=== PATIENT | female | born 1995 | race Hispanic/Latino ===

== ENCOUNTER 2018-07-14 16:16 | Emergency (ER) | payer OTHER ==
[2018-07-14 16:48] LABS: Bilirubin Negative (Negative); Blood, Urine Negative (Negative); Clarity CLEAR (Clear); Glucose, Urine (Dipstick) Negative (Negative); Leukocyte Trace (Negative); Nitrite Negative (Negative); Protein, Urine (Dipstick) Negative (Neg-Trace); Specific Gravity, Urine 1.011 (1.002-1.036); Urobilinogen 0.2 mg/dL (0.2-1.0); pH, Urine 6.5 (5.0-9.0)
[2018-07-14 16:50] LABS: Bacteria/HPF None Seen HPF (None Seen); Hyaline Casts/LPF 0-3 HYALINE CAST LPF (0-3 Hyaline); Pathc Cast-AUWi Flag 0.58 (0-2.49); RBC/HPF 0-3 HPF (0-3)
[2018-07-14 16:55] LABS: #Basophils 0.1 thou/uL (0.0-0.2); #Eosinphils 0.2 thou/uL (0.0-0.7); #Lymphocytes 2.1 thou/uL (1.20-3.40); #Monocytes 0.9 thou/uL (0.11-0.59); #Neutrophils 7.2 thou/uL (1.40-6.50); %Basophils 0.8 % (0.0-1.0); %Eosinophils 1.5 % (0.0-10.0); %Lymphocytes 20.2 % (21.0-51.0); %Monocytes 8.4 % (0.0-10.0); %Neutrophils 69.1 % (42.0-75.0); Hemoglobin 12.4 g/dL (12.0-16.0); Mean Corpuscular HGB CONC 32.5 g/dL (32.0-36.0); Mean Corpuscular Hemoglobin 27.9 pg (27.0-31.0); Mean Platelet Volume 8.5 fL (7.4-10.4); Platelet Count 258 thou/uL (130-400); RBC Distribution Width 12.3 % (11.5-14.5); Red Blood Cell (RBC) Count 4.46 mill/uL (4.20-5.40); White Blood Cell (WBC) Count 10.4 thou/uL (4.8-10.8)
[2018-07-14 17:17] LABS: ALT (SGPT) 22 U/L (8-55); AST (SGOT) 20 U/L (5-34); Alkaline Phosphatase 55 U/L (40-150); Anion Gap 9 mmol/L (10-20); BUN (Urea Nitrogen) 8 mg/dL (7.0-18.7); Bilirubin, Total 1.1 mg/dL (0.2-1.2); Calc. Creatinine Clearance 0 mL/min (70-130); Calcium 8.8 mg/dL (7.8-10.44); Carbon Dioxide 24 mmol/L (22-29); Chloride 105 mmol/L (98-107); Estimated GFR-MDRD Greater than 90; Glucose 78 mg/dL (70-105); Lipase 10 U/L (8-78); Potassium 3.7 mmol/L (3.5-5.1); Sodium 134 mmol/L (136-145)
--- NOTE | 2018-07-14 18:28 | ULT ---
OBSTETRICAL ULTRASOUND: CLINICAL HISTORY: Nausea and vomiting for two days. Pelvic pain. patient. TECHNIQUE: Ken-scale Doppler color-flow imaging performed with spectral analysis. FINDINGS: There is evidence of an intrauterine gestation, with a gestational sac, a pole, and a yolk sac present. The average age by ultrasound is 8 weeks 2 days. cardiac activity is documented at 1 68 beats per minute. No significant free pelvic fluid. Doppler assessment reveals flow to each ovar y. IMPRESSION: Single liver intrauterine gestation, as above. Recommend continued age appropriate surveillance. POS: ALEXIS
[2018-07-14] MEDS ORDERED: Ondansetron ODT 4 MG TAB ONE (18:42)
== END 2018-07-14 19:43 | disposition home or self-care (01) ==
LOC: ERS 16:16
DX: O21.9 Vomiting of pregnancy, unspecified (principal); Z3A.08 8 weeks gestation of pregnancy
CPT/HCPCS: 36415; 76805; 80053; 81003; 81015; 83690; 84702; 85025; Q0162

== ENCOUNTER 2018-08-02 03:00 | Emergency (ER) | payer OTHER ==
[2018-08-02] MEDS ORDERED: Ondansetron ODT 4 MG TAB ONE (04:40)
[2018-08-02 05:11] LABS: Bilirubin Small (Negative); Blood, Urine Negative (Negative); Clarity CLOUDY (Clear); Glucose, Urine (Dipstick) Negative (Negative); Leukocyte Negative (Negative); Nitrite Negative (Negative); Protein, Urine (Dipstick) Negative (Neg-Trace); Specific Gravity, Urine 1.033 (1.002-1.036); pH, Urine 5.5 (5.0-9.0)
[2018-08-02] MEDS ORDERED: Ondansetron ODT 8 MG TAB ONE (06:25)
== END 2018-08-02 09:07 | disposition home or self-care (01) ==
LOC: ERS 03:00
DX: O21.9 Vomiting of pregnancy, unspecified (principal); Z3A.11 11 weeks gestation of pregnancy
CPT/HCPCS: 81003; 96360; Q0162

== ENCOUNTER 2019-01-13 02:44 | Inpatient (IN) | payer OTHER ==
[2019-01-13 03:20] VITALS: BMI 25.0
[2019-01-13] MEDS ORDERED: Ondansetron PF 4 MG/2 ML Vial IVP PRN (04:05)
[2019-01-13] MEDS ORDERED: Butorphanol Tartrate 1 MG/ML VIAL SLOW IVP PRN (04:05)
[2019-01-13] MEDS ORDERED: Promethazine HCl 25 MG/ML VIAL IM PRN (04:05)
[2019-01-13] MEDS ORDERED: NS / Oxytocin 40 units/1000ml 1,000 ML IV PRN (04:05)
[2019-01-13] MEDS ORDERED: Ibuprofen 800 MG TAB PO PRN (04:05)
[2019-01-13] MEDS: Lactated Ringer's 1,000 ML IV SCH ×3 (04:05→13:11)
[2019-01-13] MEDS ORDERED: Lidocaine 1% (PF) 30 ML VIAL SC PRN (04:05)
[2019-01-13] MEDS ORDERED: Lactated Ringer's 1,000 ML IV SCH (04:05)
[2019-01-13] MEDS ORDERED: Penicillin G Potassium 5 MILL.UNITS in Sodium Chloride 0.9% 100 ML IVPB SCH (04:05)
[2019-01-13] MEDS ORDERED: HYDROcodone/Acetaminophen 5/325 mg Tablet PO PRN ×2 (04:05)
[2019-01-13 04:33] LABS: Amnisure Internal Control QC ACCEPTABLE (ACCEPTABLE); Amnisure Test No Membranes Rupture (No Rupture)
--- NOTE | 2019-01-13 04:33 | HP ---
TIME OF SERVICE: 0400 hours. PRESENTING COMPLAINTS: Contractions at 34 weeks. HISTORY OF PRESENT ILLNESS: Ms. Blanca is a 23-year-old, 4, para 2, AB 1 with an EDC of 02/20 placing her at 34 weeks and 4 days. She is a patient of Dr. Ani Ivy at [facility]. The patient reports that she had intercourse with her this evening attempting to bring the onset of labor and began having contractions. She has had some vaginal discharge that she thinks may be leakage of fluid, but could possibly also be liquified semen. She reports an active fetus. LOG SORTER HISTORY: x1 for labor. x1 at 38 weeks. Blood type A positive, antibody negative, Pap negative, rubella immune, VDRL nonreactive. Hepatitis B, GC, chlamydia negative, 50 g within normal limits. PAST MEDICAL HISTORY: Denies. PAST SURGICAL HISTORY: C-sections and cholecystectomy. ALLERGIES: DENIES. MEDICATIONS: vitamins and weekly Brandi. SOCIAL HISTORY: Denies tobacco, alcohol, or IV drug use. FAMILY HISTORY: Noncontributory. REVIEW OF SYSTEMS: Noncontributory. PHYSICAL EXAMINATION: GENERAL: female, resting comfortably, complaining of contractions about every 5 minutes. VITAL SIGNS: Blood pressure 114/81, pulse 85, respirations 18, temperature 98.9. HEENT: Within normal limits. LUNGS: Clear to auscultation bilaterally. HEART: Regular rate and rhythm. ABDOMEN: Soft with palpable contractions q.5 minutes. Vulva without lesions. Vagina with slight discharge. Cervix, 3 to 4, 80, -1, cephalic, ballots, bag of water seems intact. AmniSure pending. EXTREMITIES: No clubbing, cyanosis, or edema. LABORATORY DATA: monitoring is carried out, which revealed a category 1 tracing, 130s to 150s, positive acceleration, no decelerations. Contractions approximately q.5 minutes. IMPRESSION: Prior section, prior with labor at 34 to 35 weeks gestation. PLAN: 1. Admission. 2. IV hydration. 3. Stadol p.r.n. 4. Betamethasone 12 mg IM q.24 x2 doses. 5. Penicillin for group B strep prophylaxis. 6. AmniSure confirm or rule out rupture of membranes. The patient's presence and plan of care were communicated with Dr. Ani Ivy. Job ID: [id number]
[2019-01-13 05:10] LABS: Amphetamine Not Detected (NotDetected); Barbiturates Screen Not Detected (NotDetected); Benzodiazepine Screen Not Detected (NotDetected); Cocaine Metabolite Screen Not Detected (NotDetected); Medtox Control Line Valid? VALID (VALID); Medtox Reader # READER 1; Methadone Not Detected (NotDetected); Methamphetamine Not Detected (NotDetected); Opiate Screen Not Detected (NotDetected); Oxycodone Screen Not Detected (NotDetected); Phencyclidine (PCP) Not Detected (NotDetected); THC/Cannabinoid Screen Not Detected (NotDetected); Tricyclic Screen Not Detected (NotDetected)
[2019-01-13 05:21] LABS: Hemoglobin 9.8 g/dL (12.0-16.0); Mean Corpuscular HGB CONC 32.4 g/dL (32.0-36.0); Mean Corpuscular Hemoglobin 24.4 pg (27.0-31.0); Mean Corpuscular Volume 75.5 fL (78.0-98.0); Mean Platelet Volume 10.1 fL (7.4-10.4); Platelet Count 264 thou/uL (130-400); RBC Distribution Width 13.6 % (11.5-14.5); White Blood Cell (WBC) Count 9.5 thou/uL (4.8-10.8)
[2019-01-13] MEDS: Betamet Acet/Betamet Na Ph 30 MG/5 ML VIAL IM SCH (05:24)
[2019-01-13 05:27] LABS: HIV (1/2) Antibody/Antigen Non-Reactive (NonReactive); HIV 1/2 INDEX 0.07 S/CO (<1.00)
[2019-01-13 05:39] LABS: Syphilis Antibody Nonreactive (Nonreactive); Syphilis Antibody Index 0.03 S/CO (<1.00 Non-Reactive)
--- NOTE | 2019-01-13 07:26 | PRG ---
DATE OF SERVICE: 01/13/2019 TIME OF SERVICE: 0715 hours. SUBJECTIVE: Ms. Blanca is resting comfortably. AmniSure was negative for rupture of membranes. heart rate monitor reveals contractions approximately q.7-10 minutes now. Category I tracing is noted. The patient's abdomen is soft and nontender. Vaginal exam is deferred at this time as there has not been significant contractions since admission at approximately 0400 hours. IMPRESSION: Cervical dilatation to 3-4 cm with contractions now with decreased contractions and possible arrest of labor. PLAN: Continue IV fluids, corticosteroids x2 doses, and penicillin. We will check the patient out to Dr. Travis Peterson. The patient may be a candidate for discharge home if no further cervical change after 24-48 hours. Job ID: [id number]
[2019-01-13 07:35] LABS: HBSAg Index 0.29 S/CO (0-0.99); Hep B Surf Ag NonReactive S/CO (NonReactive)
[2019-01-13] MEDS: Penicillin G 2.5 MILL.units 2.5 MILL.UNITS in Premix Bag 1 BAG IVPB SCH ×3 (09:30→17:52)
--- NOTE | 2019-01-13 18:50 | PDOC.EVN ---
Event Note - Event Note Event Note: Pt reports she has decreased frequency and intensity of uterine contractions. She is tolerating a diet. vital signs reviewed and wnl fht 130's mod ltv +Accels, no decel toco [id number] with irritability most not felt by the patient A/P 34weeks ptl spontaneously arrested at 3cm. betamethazone #2 due in am ~5. nst bid . I dc'd abx. Aman in house management. February d/c home tomorrow if remains arrested and stable.
--- NOTE | 2019-01-14 04:58 | PDOC.LDPN ---
Labor & Delivery Progress Note - Subjective Subjective: comfortable (No concerns. no ctx. Good FM. No LOF, VB. ) - Objective Vital signs reviewed and normal: yes General: NAD Uterine fundus: non tender Dilation: 3 cm per past exam, not rechecked FHT: category 1 (120s, mod gaurav, +accels, no decels. ) [place] contractions every: none on toco last night - Assessment (1) 34 weeks gestation of Code(s): Z3A.34 - 34 WEEKS GESTATION OF Current Visit: Yes Status : Acute (2) labor Code(s): O60.00 - LABOR WITHOUT DELIVERY, UNSPECIFIED TRIMESTER Current Visit: Yes Status: Acute -: Complete steroid course this AM. GBS culture. NST today. If quiescent, plan for d/c home today. Recommended modified bed rest at home to allow for complete benefit of steroids for FLM.
[2019-01-14] MEDS: Betamet Acet/Betamet Na Ph 30 MG/5 ML VIAL IM SCH (05:32)
[2019-01-14 05:42] VITALS: BP 98/52; TEMP 98.5
== END 2019-01-14 10:21 | disposition home or self-care (01) | DRG 833 ==
LOC: L&D/OP 02:44 → L&D 07:52
PROVIDERS: ADMIT Obstetrics & Gynecology; ATTEND Obstetrics & Gynecology
DX: O60.03 Preterm labor without delivery, third trimester (principal); O34.219 Maternal care for unspecified type scar from previous cesarean delivery; Z3A.34 34 weeks gestation of pregnancy
CPT/HCPCS: 36415; 59025; 80306; 84112; 85027; 86780; 86850; 86900; 86901; 87081; 87340; 87389; 99285; J0702; J2540; J7050

== ENCOUNTER 2019-01-25 23:31 | Day surgery (SDC) | payer OTHER ==
[2019-01-26 00:21] VITALS: BP 105/68; TEMP 98; BMI 25.4
--- NOTE | 2019-01-26 03:03 | PRG ---
DATE OF SERVICE: 01/26/2019 PRIMARY OB: Dr. Ani Ivy. CHIEF COMPLAINT: Abdominal pains. HISTORY OF PRESENT ILLNESS: Patient is a 23-year-old G4, P2 female with an intrauterine at 36 weeks and 3 days, who is presenting to Labor and Delivery with uterine contractions that began yesterday. She reports that they are lasting about a minute and coming about every 2 to 3 minutes. The patient does report having had intercourse yesterday also. The patient does have presented about a week ago in a similar situation, was placed on observation and given steroids. Contractions subsequently abated and patient was discharged home. Patient reports that she has been having a mucousy discharge since yesterday. She denies any leakage of fluid or gross vaginal bleeding. She denies any recent illness, fever, fall, headache, chest pain, shortness of breath, nausea, vomiting, diarrhea, constipation, any new rashes, hip problems, knee problems, muscle weakness, or urinary urgency. PAST MEDICAL HISTORY: Negative. PAST SURGICAL HISTORY: She has had a prior at 25 weeks gestation and a subsequent vaginal . She also had cholecystectomy. ALLERGIES: NO KNOWN DRUG ALLERGIES. MEDICATIONS: 1. Brandi, which has recently been discontinued. 2. vitamins. SOCIAL HISTORY: Denies drug, alcohol, or tobacco use. OB LABS: Blood type is A positive. Antibody screen is negative. VDRL is nonreactive in the third trimester. Hepatitis B surface antigen is negative in the third trimester. HIV nonreactive in third trimester. She is rubella immune. REVIEW OF SYSTEMS: Per HPI. PHYSICAL EXAMINATION: VITAL SIGNS: Blood pressure is 119/55, heart rate of 88, and saturating 96% on room air. GENERAL: She appears to be in no acute distress. She is alert, oriented, cooperative, and pleasant to interact with. HEAD: Normocephalic and atraumatic. LUNGS: Clear to auscultation bilaterally. HEART: Has regular rate and rhythm. ABDOMEN: Soft and gravid. EXTREMITIES: Nontender and nonedematous. : Per nursing staff, cervix is 2.5 cm dilated, 50% effaced, -1 station, which is unchanged from 2 weeks ago. heart tracing shows the fetus in the baseline in the 120s with moderate long-term variability, positive 15 x 15 accelerations, no decelerations. The tocometer showing contractions about 4 to 6 minutes with some irritability. ASSESSMENT AND PLAN: Patient is a 23-year-old multiparous female with intrauterine at 36 weeks, who is here complaining of uterine contractions. There has been no cervical change up to this point. Patient has remained unchanged for the last couple of weeks. We will evaluate for labor over the next several hours. If she has no cervical change, will be discharged to home. Patient was given steroids the last time she presented with contractions at 35 weeks and was subsequently discharged home. Fetus has a reactive NST and category 1 tracing. GBS status is unknown at this time. Addendum: 0700> Pt has made slow cervical change from 2.5-3.5 cm and reports painful contractions again. She has been comfortable with IM morphine 6mg x1. I have notified her primary OB who will be making final disposition. Job ID: [id number] MTDD
[2019-01-26] MEDS ORDERED: Morphine 10 MG/ML VIAL IM SCH (03:15)
[2019-01-26] MEDS ORDERED: Fluconazole 100 MG TAB PO SCH (08:00)
[2019-01-26 08:06] LABS: Amnisure Test No Membranes Rupture (No Rupture)
[2019-01-26 08:08] LABS: Amnisure Internal Control QC ACCEPTABLE (ACCEPTABLE)
[2019-01-26] MEDS ORDERED: Promethazine HCl 25 MG/ML VIAL IM PRN (09:55)
[2019-01-26] MEDS ORDERED: Butorphanol Tartrate 1 MG/ML VIAL SLOW IVP PRN (09:55)
[2019-01-26] MEDS ORDERED: Acetaminophen 500 MG TAB PO PRN (09:55)
[2019-01-26] MEDS ORDERED: Ondansetron PF 4 MG/2 ML Vial IVP PRN (09:55)
--- NOTE | 2019-01-26 10:00 | PDOC.LDHP ---
Labor and Delivery H&P Chief complaint: contractions HPI: 23 yo @ 36w3d admit for observation due to PTL/ ctx. s/p steroids for FLM 2 weeks ago. Reports possible clear fluid leaking when went to bathroom , no continual leaking. No VB. Good FM. Reports ctx q5-10 min and feels increased pressure. However, pt was resting on my initial evaluation at 0730. Current gestational age (weeks): 36 Due date: 02/20/19 Dating criteria: last menstrual period Grav: 4 Para: 2 OB History Details: LTCS @ 25 weeks for PTL VABC x 1 at term with 17 OHP SAB x 1 Current complications: none Abnormal US findings: No Past Medical History: Denies Current medications: pre- vitamins Previous surgical history: low tranverse CS, cholecystectomy Allergies/Adverse Reactions: Allergies Allergy/AdvReac Type Severity Reaction Status Date / Time No Known Allergies Allergy Verified 01/26/19 00:01 Social history: none - Physical Exam Vital signs reviewed and normal: yes General: NAD Heart: RRR Lungs: CTAB Abdomen: other (SSE: small clear fluid in vagina, no pooling (appears to be melted gel); thick white discharge) Extremeties: no edema FHT: category 1 (120s, reactive, no decels) [place] contractions every: q10 min - Vaginal Exam cm dilated: 2 (cephalic ) Effacement: 50% Station: -3 - OB Labs Blood type: A RH: positive Antibody Screen: negative HIV: negative RPR: negative HEPSAg: negative 1 hour GCT: negative GBS: negative Urine drug screen: negative Rubella: immune - Assessment 36w3d IUP contraction, painful LTCS x1 x1 - Plan -: Amnisure neg Undergoing observation due to painful ctx. Monitor and recheck in few hours. plan for d/c home if unchanged.
--- NOTE | 2019-01-26 11:20 | PDOC.LDPN ---
Labor & Delivery Progress Note - Subjective Subjective: comfortable - Objective Vital signs reviewed and normal: yes General: NAD Uterine fundus: non tender Dilation: 2.5 Effacement: 50% Station: -3 FHT: category 1 [place] contractions every: q10 + min - Assessment (1) 36 weeks gestation of Code(s): Z3A.36 - 36 WEEKS GESTATION OF Current Visit: Yes Status : Acute (2) contractions Code(s): O47.9 - FALSE LABOR, UNSPECIFIED Current Visit: Yes Status: Acute -: No change for 2 exams by me > 4 hrs apart. Appears to be resting on my evaluations. D/C home with precautions. L&D warnings reviewed.
== END 2019-01-26 11:30 | disposition home or self-care (01) ==
LOC: L&D/OP 23:31
PROVIDERS: ATTEND Obstetrics & Gynecology
DX: O47.03 False labor before 37 completed weeks of gestation, third trimester (principal); Z3A.36 36 weeks gestation of pregnancy; Z79.899 Other long term (current) drug therapy
CPT/HCPCS: 84112; 87480; 87510; 87660; 96374; 99284; J2270

== ENCOUNTER 2019-02-04 15:51 | Inpatient (IN) | payer OTHER ==
[2019-02-04 16:46] VITALS: BMI 26.0
[2019-02-04] MEDS ORDERED: Methylergonovine 0.2 MG/ML VIAL IM PRN (16:48)
[2019-02-04] MEDS ORDERED: HYDROcodone/Acetaminophen 5/325 mg Tablet PO PRN (16:48)
[2019-02-04] MEDS ORDERED: Diphenoxylate HCl/Atropine Tablet PO PRN (16:48)
[2019-02-04] MEDS ORDERED: Promethazine HCl 25 MG/ML VIAL IM PRN ×2 (16:48→20:32)
[2019-02-04] MEDS ORDERED: Misoprostol 200 MCG TAB PR PRN (16:48)
[2019-02-04] MEDS ORDERED: Ondansetron PF 4 MG/2 ML Vial IVP PRN ×2 (16:48→20:32)
[2019-02-04] MEDS ORDERED: Meperidine HCl/PF 25 MG/ML VIAL IM/IV PRN (16:48)
[2019-02-04] MEDS ORDERED: Butorphanol Tartrate 1 MG/ML VIAL SLOW IVP PRN (16:48)
[2019-02-04] MEDS ORDERED: Carboprost 250 MCG/ML AMP IM PRN (16:48)
[2019-02-04] MEDS ORDERED: Lidocaine 1% (PF) 30 ML VIAL SC PRN (16:48)
[2019-02-04] MEDS ORDERED: Ibuprofen 800 MG TAB PO PRN (16:48)
--- NOTE | 2019-02-04 16:57 | PDOC.LDHP ---
Labor and Delivery H&P Chief complaint: loss of fluid HPI: 23 yo @ 37w6d by 8 week CRL who presented to clinic with c/o LOF. Gross LOF on exam. H/O LTCS x1 and x1. Desires TOLAC. Current gestational age (weeks): 37 Due date: 02/20/19 Dating criteria: first trimester ultrasound Grav: 3 Para: 2 OB History Details: LTCS x1 for PTL @ 25 weeks x 1 Current complications: none Abnormal US findings: No Past Medical History: Anemia Current medications: pre-jose vitamins, iron Previous surgical history: low tranverse CS Allergies/Adverse Reactions: Allergies Allergy/AdvReac Type Severity Reaction Status Date / Time No Known Allergies Allergy Verified 01/26/19 00:01 Social history: none - Physical Exam Vital signs reviewed and normal: yes General: NAD Heart: RRR Lungs: CTAB Abdomen: gravid Extremeties: no edema FHT: category 1 (120s, mod gaurav, +accels, no decels) [place] contractions every: irritability; pt feels ctx q5+ min - Vaginal Exam cm dilated: 3 (cephalic, another membrane palpated on exam as well ) Effacement: 75% Station: -2 - OB Labs Blood type: A RH: positive Antibody Screen: negative HIV: negative RPR: negative HEPSAg: negative 1 hour GCT: negative GBS: negative Urine drug screen: negative Rubella: immune - Assessment 37w6d IUP SROM Latent labor H/O LTCS x 1 and x1 - Plan Plan: admit to L&D, labor augmentation if indicated (start pitocin), informed consent obtained, anesthesia consult for pain management -: Reviewed R/B/A/I of TOLAC vs RCD. Desires TOLAC.
[2019-02-04] MEDS ORDERED: NS w/ Oxytocin 10 units 500 ML IV SCH (17:00)
[2019-02-04 17:54] LABS: Hemoglobin 9.2 g/dL (12.0-16.0); Mean Corpuscular HGB CONC 31.8 g/dL (32.0-36.0); Mean Corpuscular Hemoglobin 23.4 pg (27.0-31.0); Mean Corpuscular Volume 73.6 fL (78.0-98.0); Platelet Count 203 thou/uL (130-400); RBC Distribution Width 15.1 % (11.5-14.5); Red Blood Cell (RBC) Count 3.93 mill/uL (4.20-5.40); White Blood Cell (WBC) Count 8.2 thou/uL (4.8-10.8)
[2019-02-04 18:29] LABS: Syphilis Antibody Nonreactive (Nonreactive); Syphilis Antibody Index 0.04 S/CO (<1.00 Non-Reactive)
[2019-02-04 18:30] LABS: HBSAg Index 0.35 S/CO (0-0.99); HIV (1/2) Antibody/Antigen Non-Reactive (NonReactive); HIV 1/2 INDEX 0.14 S/CO (<1.00); Hep B Surf Ag Non-Reactive S/CO (NonReactive)
[2019-02-04] MEDS: Lactated Ringer's 1,000 ML IV SCH (18:55)
[2019-02-04] MEDS ORDERED: Fentanyl 4 mcg/Bup 0.1% Cadd 100 ML ONE (20:00)
[2019-02-04] MEDS ORDERED: Lidocaine 1.5%/Epinephrine 1:200,000 5 ML AMPUL IJ ONE (20:01)
[2019-02-04] MEDS ORDERED: ePHEDrine/0.9% NaCl/PF SYRINGE 50 mg/10 ml SLOW IVP PRN (20:32)
[2019-02-04] MEDS ORDERED: Acetaminophen 325 MG TAB PO PRN (20:32)
[2019-02-04] MEDS ORDERED: diphenhydrAMINE 50 MG/ML VIAL IVP PRN (20:32)
[2019-02-04] MEDS ORDERED: Eucerin (Mineral Oil/Petrolatum,White) 30 gm Jar TOP PRN (20:32)
[2019-02-04] MEDS ORDERED: Lactated Ringer's 500 ML IV PRN (20:32)
[2019-02-04] MEDS ORDERED: Naloxone HCl 0.4 mg/ml Vial IVP PRN ×2 (20:32)
[2019-02-04] MEDS ORDERED: Communication Order-Pharmacy FS SCH (20:45)
[2019-02-04] MEDS ORDERED: Fentanyl 4 mcg/Bupivacaine 0.1% Cassette 100 ML EPIDURAL SCH (20:45)
[2019-02-04] MEDS ORDERED: Misoprostol 200 MCG TAB ONE (23:30)
[2019-02-04] MEDS ORDERED: Lidocaine 1% (PF) 30 ML VIAL ONE (23:30)
[2019-02-05] MEDS: NS / Oxytocin 40 units/1000ml 1,000 ML IV PRN ×2 (00:03→04:19)
--- NOTE | 2019-02-05 00:19 | PDOC.OPDEL ---
OB Operative/Delivery Note Delivery Dr/Surgeon: Ani Ivy DO Pre-Delivery Diagnosis: ruptured membrane Procedure/Post Delivery Dx: vaginal delivery after CS Weeks gestation: 37 Anesthesia: epidural - Findings A Sex: male - 1 min: 9 - 5 min: 9 - Additional Findings/Plan Placenta delivered: spontaneous Repaired Obstetrical Laceration: 1st degree Estimated blood loss: QBL 27 cc; EBL 100 cc Compilations/Other Findings: in cephalic presentation, KERRY position. Compound right arm. Normal appearing placenta. Clear amniotic fluid Post delivery plan: routine recovery
[2019-02-05] MEDS ORDERED: HYDROcodone/Acetaminophen 5/325 mg Tablet PO PRN (01:42)
[2019-02-05] MEDS ORDERED: NS / Oxytocin 40 units/1000ml 1,000 ML IV SCH (01:42)
[2019-02-05] MEDS ORDERED: Bisacodyl 10 MG SUPP PR PRN (01:42)
[2019-02-05] MEDS ORDERED: Benzocaine-Menthol 82.5 ML CAN TOP PRN (01:42)
[2019-02-05] MEDS ORDERED: Milk Of Magnesia 30 ML UDCUP PO PRN (01:42)
[2019-02-05] MEDS: Lactated Ringer's 1,000 ML IV SCH (03:06)
[2019-02-05 05:07] LABS: Hemoglobin 8.3 g/dL (12.0-16.0); Mean Corpuscular HGB CONC 31.6 g/dL (32.0-36.0); Mean Corpuscular Hemoglobin 23.2 pg (27.0-31.0); Mean Corpuscular Volume 73.4 fL (78.0-98.0); Mean Platelet Volume 10.9 fL (7.4-10.4); Platelet Count 165 thou/uL (130-400); RBC Distribution Width 14.9 % (11.5-14.5); Red Blood Cell (RBC) Count 3.57 mill/uL (4.20-5.40); White Blood Cell (WBC) Count 11.8 thou/uL (4.8-10.8)
[2019-02-05] MEDS: Ibuprofen 800 MG TAB PO SCH ×3 (05:28→21:35)
--- NOTE | 2019-02-05 06:27 | PDOC.PP ---
Post Progress Note Post Day #: 1 Subjective: No concerns. has latched. Minimal pain and lochia. PO intake tolerated: yes Flatus: yes Ambulation: yes Vital Signs (12 hours) Temp Pulse Resp BP Pulse Ox 02/05/19 04:45 98.9 F 99 18 100/53 L 98 02/05/19 03:40 98.2 F 99 18 98/55 L 98 02/05/19 02:40 98.5 F 76 18 111/55 L 99 Weight Weight 129 lb - Physical Examination General: NAD Cardiovascular: RRR Respiratory: non-labored breathing Abdominal: no distention, appropriately TTP Fundus firm & at: below umbilicus Extremities: negative homans (B) Neurological: no gross focal deficits Psychiatric: A&Ox3, normal affect Result Diagrams: 02/05/19 04:54 Additional Labs: Post Labs Blood Type A POSITIVE 02/04/19 17:12 Hep Bs Antigen Non-Reactive S/CO (NonReactive) 02/04/19 17:12 (1) Anemia Code(s): D64.9 - ANEMIA, UNSPECIFIED Status: Chronic Qualifiers: Anemia type: iron deficiency Iron deficiency anemia type: inadequate dietary iron intake Qualified Code(s): D50.8 - Other iron deficiency anemias (2) Vaginal after section Code(s): O34.219 - MATERNAL CARE FOR UNSP TYPE SCAR FROM PREVIOUS DEL Status: Acute - Assessment/Plan PPD1 VSSAF Continue PP care. Fe supplement.
[2019-02-05] MEDS: Prenatal Vitamin 1 TAB PO SCH (09:49)
[2019-02-05] MEDS: Ferrous Sulfate 325 MG TAB PO SCH ×2 (09:49→17:22)
[2019-02-05] MEDS: Docusate Calcium (SURFAK) 240 MG CAP PO SCH ×2 (09:49→21:35)
[2019-02-06] MEDS: Ibuprofen 800 MG TAB PO SCH ×2 (05:58→13:14)
--- NOTE | 2019-02-06 08:22 | PDOC.PP ---
Post Progress Note Post Day #: 2 Subjective: No concerns. Doing well. Minimal pain and lochia. Formula feeding. PO intake tolerated: yes Flatus: yes Ambulation: yes Vital Signs (12 hours) Temp Pulse Resp BP Pulse Ox 02/06/19 04:15 98.1 F 68 18 107/56 L 99 02/05/19 23:56 98.6 F 73 16 97/56 L 98 Weight Weight 129 lb - Physical Examination General: NAD Cardiovascular: RRR Respiratory: non-labored breathing Abdominal: no distention, appropriately TTP Fundus firm & at: below umbilicus Extremities: negative homans (B) Neurological: no gross focal deficits Psychiatric: A&Ox3, normal affect Result Diagrams: 02/05/19 04:54 Additional Labs: Post Labs Blood Type A POSITIVE 02/04/19 17:12 Hep Bs Antigen Non-Reactive S/CO (NonReactive) 02/04/19 17:12 (1) Anemia Code(s): D64.9 - ANEMIA, UNSPECIFIED Status: Chronic Qualifiers: Anemia type: iron deficiency Iron deficiency anemia type: inadequate dietary iron intake Qualified Code(s): D50.8 - Other iron deficiency anemias (2) Vaginal after section Code(s): O34.219 - MATERNAL CARE FOR UNSP TYPE SCAR FROM PREVIOUS DEL Status: Acute - Assessment/Plan PPD2 VSSAF Meeting requirements for d/c D/C home today with infant. Fe supplementation.
[2019-02-06 08:48] VITALS: BP 103/59; TEMP 97.7
[2019-02-06] MEDS: Docusate Calcium (SURFAK) 240 MG CAP PO SCH (10:25)
[2019-02-06] MEDS: Ferrous Sulfate 325 MG TAB PO SCH (10:25)
[2019-02-06] MEDS: Prenatal Vitamin 1 TAB PO SCH (10:25)
== END 2019-02-06 15:15 | disposition home or self-care (01) | DRG 807 ==
LOC: L&D/OP 15:51 → L&D 21:25 → 3SW 02-05 02:44
PROVIDERS: ADMIT Obstetrics & Gynecology; ATTEND Obstetrics & Gynecology
PROC: 10E0XZZ Delivery of Products of Conception, External Approach (ICD-10-PCS; principal; 2019-02-05)
PROC: 0HQ9XZZ Repair Perineum Skin, External Approach (ICD-10-PCS; 2019-02-05)
DX: O34.211 Maternal care for low transverse scar from previous cesarean delivery (principal); Z37.0 Single live birth; Z3A.37 37 weeks gestation of pregnancy; O70.0 First degree perineal laceration during delivery; O99.02 Anemia complicating childbirth; D50.8 Other iron deficiency anemias
CPT/HCPCS: 36415; 51702; 85027; 86780; 86850; 86900; 86901; 87340; 87389; J2001; J2590; J3490

== ENCOUNTER 2020-09-25 16:09 | Emergency (ER) | payer MEDICAID, OTHER ==
--- NOTE | 2020-09-25 16:37 | RAD ---
Left hand 3 views HISTORY: Injury. FINDINGS: Joint spaces are preserved. No acute fracture, dislocation, or radiopaque foreign bodies. IMPRESSION : No abnormalities are demonstrated.
[2020-09-25] MEDS ORDERED: Lidocaine 1% (PF) 30 ML VIAL ONE (17:17)
== END 2020-09-25 18:20 | disposition home or self-care (01) ==
LOC: ERS 16:09
DX: O99.711 Diseases of the skin and subcutaneous tissue complicating pregnancy, first trimester (principal); L03.012 Cellulitis of left finger; Z3A.08 8 weeks gestation of pregnancy; Z79.899 Other long term (current) drug therapy
CPT/HCPCS: 26010; J2001